=== PATIENT | male | born 1980 | race Caucasian/White ===

== ENCOUNTER 2024-05-14 16:25 | Emergency (ER) | payer OTHER ==
[~2024-05-14] VITALS: Ht 175.3 cm; Wt 74.3 kg
[~2024-05-14 16:25] MED LIST: ADDERALL XR30 MG PO
[2024-05-14 16:52] VITALS: BP 99/55
[2024-05-14] MEDS ORDERED: GABAPENTIN100 MG PO (17:14)
[2024-05-14] MEDS ORDERED: Gabapentin 100 MG CAP PO ONE (17:15)
== END 2024-05-14 18:10 | disposition home or self-care (01) ==
LOC: ED 16:25
DX: G56.00 Carpal tunnel syndrome, unspecified upper limb (principal)